=== PATIENT | male | born 1935 | race Caucasian/White ===

== ENCOUNTER 2017-04-09 17:28 | Emergency (ER) | payer MEDICARE, BC ==
[2017-04-09 19:14] VITALS: BP 157/89
--- NOTE | 2017-04-09 20:18 | EDM.PDOC ---
ED HPI GENERAL MEDICAL PROBLEM - General Chief Complaint: ENT Problem Stated Complaint: FALL Time Seen by Provider: 04/09/17 20:10 Source of Information: Reports: Patient History Limitations: Reports: No Limitations - History of Present Illness INITIAL COMMENTS - FREE TEXT/NARRATIVE: Brady is an 81 year old male who presents to the ED today with c/o nasal pain, frontal neck pain and forehead pain. Patient [place] cabin cleaning up brush when he think he tripped on a twig and fell onto his face. Patient denies any loc. Patient immediately had a blood nose. Patient thinks his DT is up to date. He is not on any blood thinners. Onset: Today Right Neck Pain Score (Numeric/FACES): 5 - Related Data Allergies Allergy/AdvReac Type Severity Reaction Status Date / Time orange juice Allergy Hives Verified 04/09/17 19:16 salicylates Allergy Hives Verified 04/09/17 19:16 Home Meds: Home Meds Cimetidine 300 mg PO BID 04/09/17 [History] Citalopram Hydrobromide [Celexa] 20 mg PO BEDTIME 04/09/17 [History] Loratadine 10 mg PO DAILY 04/09/17 [History] Losartan [Cozaar] 50 mg PO DAILY 04/09/17 [History] Multivitamin [Multiple Vitamins] 1 each PO DAILY 04/09/17 [History] Terazosin [Hytrin] 2 mg PO BEDTIME 04/09/17 [History] atorvaSTATin [Lipitor] 10 mg PO ONETIME 04/09/17 [History] metFORMIN [Glucophage] 500 mg PO TID 04/09/17 [History] rOPINIRole [Requip] 3 tab PO BEDTIME 04/09/17 [History] Past Medical History HEENT History: Reports: Hard of Hearing Cardiovascular History: Reports: High Cholesterol, Hypertension Respiratory History: Reports: Asthma Psychiatric History: Reports: Mood Swings Endocrine/Metabolic History: Reports: Diabetes, Type II Dermatologic History: Reports: Eczema, Psoriasis - Past Surgical History GI Surgical History: Reports: Appendectomy Male Surgical History: Reports: TURP-Transurethral Resection of Prostate Other Musculoskeletal Surgeries/Procedures:: BILAT ROTATOR CUFF REPAIR Social & Family History - Tobacco Use Smoking Status *Q: Unknown Ever Smoked ED ROS ENT - Review of Systems Review Of Systems: ROS reveals no pertinent complaints other than HPI. ED EXAM, ENT - Physical Exam Exam: See Below Exam Limited By: No Limitations General Appearance: Alert, WD/WN, No Apparent Distress Eye Exam: Bilateral Eye: EOMI, PERRL Ears: Normal External Exam, Normal TMs Nose: Nasal Swelling, Nasal Tenderness, Dried Blood. No: Septal Performation Mouth/Throat: Normal Inspection, Normal Oropharynx Head: Other (scalp abrasions) Neck: Full Range of Motion, Other (tender anteriorlaterally. ). No: Lymphadenopathy (R), Lymphadenopathy (L) Respiratory/Chest: No Respiratory Distress, Lungs Clear, Chest Non-Tender Cardiovascular: Normal Peripheral Pulses, Regular Rate, Rhythm GI/Abdominal: Normal Bowel Sounds, Soft, Non-Tender Extremities: Normal Inspection Neurological: Alert, Oriented, CN II-XII Intact, Normal Cognition, No Motor/ Sensory Deficits Psychiatric: Normal Affect, Normal Mood Skin: Other (abrasions to forehead) Lymphatic: No Adenopathy Course - Vital Signs Last Recorded V/S: Last Vital Signs Temp 37.1 C 04/09/17 19:09 Pulse 76 04/09/17 19:09 Resp 15 04/09/17 19:09 BP 157/89 H 04/09/17 19:09 Pulse Ox 96 04/09/17 19:09 Brady is a delightful 81 year old male who presents to the ED today with c/o nasal pain, forehead abrasion and anterior neck pain after tripping on a twig and falling forward, landing on his face. Patient denies any LOC. He is not on any blood thinners, he denies any visual changes, nausea, vomiting, or other injuries. Please refer to HPI and focused exam. Patient on exam is alert and oriented, he has no evidence of any neuro/focal deficits. Concerns for cervical spine injury, although likely more muscle strain related as pain is anterior. Concerns for nasal fracture. Patient declined any offer of pain medication while in the ED. CT scans ordered of head, cervical spine and maxillofacial. CT of head is negative for any acute intracranial pathology. CT of cervical spine shows reversal of normal lordosis, degenerative changes of the discs and facets with trace angulation of C4 on C5 most likely from degenerative change. No acute fracture line identified, this report was called to by my Dr. Jones, radiologist. CT scan maxillocifacial is negative for any fractures. I discussed findings with patient and his , his face and abrasions were cleaned well, bacitracin was applied. I discussed frequent ice application and tylenol for pain. Patient and his are heading home to [place], I encouraged him to follow with PCP on Sunday. Reasons to return to the ED discussed. Patient agreeable and was discharged in stable condition. - Orders/Labs/Meds Orders: Active Orders 24 hr Category Date Time Status Vaccines to be Administered [RC] PER UNIT ROUTINE Care 04/09/17 20:22 Active Cervical Spine wo Cont [CT] Stat Exams 04/09/17 20:14 Taken Head wo Cont [CT] Stat Exams 04/09/17 20:13 Taken Max Facial Sinus wo Cont [CT] Stat Exams 04/09/17 20:14 Taken Meds: Medications Discontinued Medications Generic Name Dose Route Start Last Admin Trade Name Freq PRN Reason Stop Dose Admin Bacitracin 3 dose 04/09/17 20:22 04/09/17 20:53 Bacitracin Oint 1 Gm TOP 04/09/17 20:23 3 dose ONETIME ONE Administration Diphtheria/Tetanus/Acell Pertussis 0.5 ml 04/09/17 20:22 04/09/17 20:51 Adacel IM 04/09/17 20:23 0.5 ml .ONCE ONE Administration Departure - Departure Time of Disposition: 22:00 Disposition: Home, Self-Care 01 Condition: Good Clinical Impression: Fall Qualifiers: Encounter type: initial encounter Qualified Code(s): W19.XXXA - Unspecified fall, initial encounter Nasal contusion Qualifiers: Encounter type: initial encounter Qualified Code(s): S00.33XA - Contusion of nose, initial encounter Neck muscle strain Qualifiers: Encounter type: initial encounter Qualified Code(s): S16.1XXA - Strain of muscle, fascia and tendon at neck level, initial encounter Abrasion of forehead Qualifiers: Encounter type: initial encounter Qualified Code(s): S00.81XA - Abrasion of other part of head, initial encounter - Discharge Information Instructions: Abrasion, Contusion, Cervical Sprain Forms: ED Department Discharge Additional Instructions: Brady, you can take 650 mg of Tylenol for pain every 4 hours as needed. Please apply ice to your nose for 20 minutes at a time several times a day. Perform gentle range of motion/stretching exercises to your neck to help with the muscle strain. Apply Bacitracin to abrasions twice daily for the next 3 days Follow up with your primary doctor on Sunday. Return to the Emergency Department with any complications or concerns. It was a pleasure meeting you. Safe Travels! - My Orders Last 24 Hours: My Active Orders 04/09/17 20:13 Head wo Cont [CT] Stat 04/09/17 20:14 Cervical Spine wo Cont [CT] Stat Max Facial Sinus wo Cont [CT] Stat 04/09/17 20:22 Vaccines to be Administered [RC] PER UNIT ROUTINE - Assessment/Plan Last 24 Hours: My Active Orders 04/09/17 20:13 Head wo Cont [CT] Stat 04/09/17 20:14 Cervical Spine wo Cont [CT] Stat Max Facial Sinus wo Cont [CT] Stat 04/09/17 20:22 Vaccines to be Administered [RC] PER UNIT ROUTINE
[2017-04-09] MEDS ORDERED: Bacitracin Oint 1 GM U/D Packet TOP ONE (20:22)
[2017-04-09] MEDS ORDERED: Diphtheria,Pertussis(Acell),Tetanus Vaccine 0.5 ML SDV IM ONE (20:22)
== END 2017-04-09 22:09 | disposition home or self-care (01) ==
LOC: JP.ED 17:28
DX: S16.1XXA Strain of muscle, fascia and tendon at neck level, initial encounter (principal); S00.33XA Contusion of nose, initial encounter; S00.81XA Abrasion of other part of head, initial encounter; E78.00 Pure hypercholesterolemia, unspecified; I10 Essential (primary) hypertension; J45.909 Unspecified asthma, uncomplicated; L40.9 Psoriasis, unspecified; E11.9 Type 2 diabetes mellitus without complications; Z90.49 Acquired absence of other specified parts of digestive tract; Z98.890 Other specified postprocedural states; Z79.84 Long term (current) use of oral hypoglycemic drugs; Z79.899 Other long term (current) drug therapy; Z91.018 Allergy to other foods; Z88.8 Allergy status to other drugs, medicaments and biological substances; W01.198A Fall on same level from slipping, tripping and stumbling with subsequent striking against other object, initial encounter
CPT/HCPCS: 70450; 70486; 72125; 90471; 90715; 99284; 99284-25